=== PATIENT | male | born 1985 | race Caucasian/White ===

== ENCOUNTER 2016-04-13 12:14 | Emergency (ER) | payer OTHER ==
[~2016-04-13] VITALS: Ht 167.6 cm; Wt 65.4 kg
[2016-04-13] MEDS ORDERED: KETOROLAC 60 MG/2 ML (TORADOL) VIAL IM ONE (12:35)
[2016-04-13 12:41] VITALS: BP 119/71
== END 2016-04-13 12:42 | disposition home or self-care (01) ==
LOC: ED 12:16
DX: M54.5 Low back pain (principal); F17.210 Nicotine dependence, cigarettes, uncomplicated
CPT/HCPCS: 96372; 99282; J1885